=== PATIENT | male | born 1960 | race Caucasian/White ===

== ENCOUNTER 2021-04-08 19:50 | Emergency (ER) | payer MEDICAID ==
[~2021-04-08] VITALS: Ht 172.7 cm; Wt 70.0 kg
[2021-04-08 20:46] VITALS: BP 158/100
[2021-04-08] MEDS ORDERED: normal saline 1000ML IV soln IVB ONE (20:50)
[2021-04-08] MEDS ORDERED: ondansetron/PF 4mg/2ml inj IV ONE (20:50)
[2021-04-08 21:43] LABS: BASOPHILS % (AUTO) 0.7 % (0-1); EOSINOPHILS # (AUTO) 0.1 X10'3 (0-0.9); EOSINOPHILS % (AUTO) 2.9 % (0-6); HEMATOCRIT 40.3 % (42.0-52.0); HEMOGLOBIN 13.8 g/dl (14.0-17.9); LYMPHOCYTES # (AUTO) 1.1 X10'3 (1.1-4.8); LYMPHOCYTES % (AUTO) 25.4 % (21-51); MEAN CORPUSCULAR HEMOGLOBIN 31.3 PG (27.0-31.0); MEAN CORPUSCULAR HGB CONC 34.2 g/dL (33.0-36.5); MEAN CORPUSCULAR VOLUME 91.3 FL (78-98); MEAN PLATELET VOLUME 6.1 FL (7.4-10.4); MONOCYTES # (AUTO) 0.3 X10'3 (0-0.9); MONOCYTES % (AUTO) 8.2 % (2-12); NEUTROPHILS # (AUTO) 2.7 X10'3 (1.8-7.7); NEUTROPHILS % (AUTO) 62.8 % (42-75); PLATELET COUNT 244 X10'3 (140-440); RED BLOOD COUNT 4.41 X10'6 (4.70-6.10); RED CELL DISTRIBUTION WIDTH 14.2 % (11.5-14.5); WHITE BLOOD COUNT 4.2 X10'3 (4.5-11.0)
[2021-04-08 22:02] LABS: ALANINE AMINOTRANSFERASE 23 U/L (12-78); ALBUMIN 3.7 G/DL (3.4-5.0); ALBUMIN/GLOBULIN RATIO 1.1 (1.1-1.5); ALKALINE PHOSPHATASE 157 IU/L (46-116); ANION GAP 11 (8-16); ASPARTATE AMINO TRANSFERASE 21 U/L (10-37); BILIRUBIN,TOTAL 0.4 MG/DL (0.1-1.0); BLOOD UREA NITROGEN 30 MG/DL (7-18); BUN/CREATININE RATIO 16.4 (5.4-32.0); CALCIUM 8.8 MG/DL (8.5-10.1); CHLORIDE 108 MMOL/L (99-107); CREATININE 1.83 MG/DL (0.60-1.10); ETHANOL < 0.010 GM/DL (0.0-0.010); GLUCOSE 125 MG/DL (70-104); POTASSIUM 4.6 MMOL/L (3.5-5.1); SODIUM 144 MMOL/L (135-145); TOTAL CARBON DIOXIDE 25.3 MMOL/L (24-32); TOTAL PROTEIN 7.1 G/DL (6.4-8.2); eGFR 38 ML/MIN
[2021-04-09] MEDS ORDERED: ketorolac trometh inj. 60 MG/2 ML VIAL IM ONE
[2021-04-09] MEDS ORDERED: HYDROcodone/acetaminophen 5mg/325mg tablet PO ONE
== END 2021-04-09 00:23 | disposition home or self-care (01) ==
LOC: ER 19:51
DX: E86.0 Dehydration (principal); R10.84 Generalized abdominal pain; N18.9 Chronic kidney disease, unspecified; Z56.0 Unemployment, unspecified; Z59.0 Homelessness
CPT/HCPCS: 36415; 74176; 80053; 80320; 85025; 96372; 99284; J1885

== ENCOUNTER 2021-04-28 20:53 | Emergency (ER) | payer MEDICAID ==
[~2021-04-28] VITALS: Ht 177.8 cm; Wt 89.0 kg
[2021-04-28 21:18] LABS: BASOPHILS # (AUTO) 0.1 X10'3 (0-0.2); BASOPHILS % (AUTO) 0.5 % (0-1); EOSINOPHILS # (AUTO) 0.2 X10'3 (0-0.9); EOSINOPHILS % (AUTO) 1.8 % (0-6); HEMOGLOBIN 16.8 g/dl (14.0-17.9); LYMPHOCYTES # (AUTO) 3.7 X10'3 (1.1-4.8); LYMPHOCYTES % (AUTO) 34.8 % (21-51); MEAN CORPUSCULAR HEMOGLOBIN 32.2 PG (27.0-31.0); MEAN PLATELET VOLUME 6.2 FL (7.4-10.4); MONOCYTES # (AUTO) 0.8 X10'3 (0-0.9); MONOCYTES % (AUTO) 7.8 % (2-12); NEUTROPHILS # (AUTO) 5.8 X10'3 (1.8-7.7); NEUTROPHILS % (AUTO) 55.1 % (42-75); PLATELET COUNT 288 X10'3 (140-440); RED BLOOD COUNT 5.22 X10'6 (4.70-6.10); RED CELL DISTRIBUTION WIDTH 14.3 % (11.5-14.5); WHITE BLOOD COUNT 10.6 X10'3 (4.5-11.0)
[2021-04-28 21:30] LABS: ALANINE AMINOTRANSFERASE 26 U/L (12-78); ALBUMIN 4.3 G/DL (3.4-5.0); ALBUMIN/GLOBULIN RATIO 1.1 (1.1-1.5); ALKALINE PHOSPHATASE 159 IU/L (46-116); ANION GAP 14 (8-16); ASPARTATE AMINO TRANSFERASE 20 U/L (10-37); BILIRUBIN,TOTAL 0.5 MG/DL (0.1-1.0); BLOOD UREA NITROGEN 28 MG/DL (7-18); BUN/CREATININE RATIO 11.3 (5.4-32.0); CALCIUM 8.8 MG/DL (8.5-10.1); CHLORIDE 106 MMOL/L (99-107); CREATININE 2.48 MG/DL (0.60-1.10); GLUCOSE 134 MG/DL (70-104); SODIUM 144 MMOL/L (135-145); TOTAL CARBON DIOXIDE 23.8 MMOL/L (24-32); TOTAL PROTEIN 8.3 G/DL (6.4-8.2); eGFR 27 ML/MIN
[2021-04-28] MEDS ORDERED: enoxaparin 100mg/ml syringe SUBCUT ONE (21:35)
[2021-04-28] MEDS ORDERED: diltiazem 5mg/ml 5ml inj. IV ONE (21:35)
[2021-04-28] MEDS ORDERED: diltiazem-NS 100mg/100ml 100 ML IV ONE (21:35)
[2021-04-28] MEDS ORDERED: normal saline 1000ML IV soln IVB ONE (21:35)
[2021-04-28 21:38] LABS: TROPONIN I < 0.04 NG/ML (0.0-0.05)
--- NOTE | 2021-04-28 22:35 | NUR ---
PT IS ALTERED. TALKING TO HIS YET HE IS ALONE IN THE ROOM. PT CRYING AND DRIFTS IN AND OUT OF SLEEP.
--- NOTE | 2021-04-28 22:41 | NUR ---
pt respirations 8 when asleep. Pt responds to physical stimuli. Hr 170.
--- NOTE | 2021-04-28 22:45 | NUR ---
NOTIFIED MD OF RAPID HR AND DECREASED RESPIRATIONS. MD TO PLACE NEW MEDICATION ORDERS.
[2021-04-28] MEDS ORDERED: amiodarone inj. 450 MG in dextrose 5%-water 241 ML IV ONE (22:55)
[2021-04-28] MEDS ORDERED: amiodarone 50MG/ML inj IV ONE (22:55)
[2021-04-28] MEDS ORDERED: amiodarone/D5 360MG/200ML BAG 200 ML IV SCH (23:05)
--- NOTE | 2021-04-28 23:22 | NUR ---
PT PULLED OUT IV. PT HAVING DELUSIONS. PT STATING MD IS HIS COUSIN AND IS TRYING TO KILL HIM. PT PARANOID THAT POISON IS IN HIS IV LINES. WAS ABLE TO PLACE A NEW IV HOWEVER PT WILL NOT ALLOW ANY OTHER STAFF MEMBERS IN HIS ROOM.
[2021-04-28] MEDS ORDERED: haloperidol lactate 5mg/ml inj IM ONE (23:45)
[2021-04-28] MEDS ORDERED: diphenhydrAMINE 50 mg/ml inj IV ONE (23:45)
[2021-04-29 00:01] VITALS: BP 113/92
[2021-04-29] MEDS ORDERED: normal saline 1000ml 1,000 ML IV ONE (00:20)
--- NOTE | 2021-04-29 00:25 | NUR ---
NOTIFIED CHARGE OF NEED FOR SITTER DUE TO DELUSIONAL STATE, RAPID HR AND DECREASED RESPIRATIONS. EDUCATED ISMAEL (PATE) ON WHAT TO WATCH FOR AND TO PLEASE NOTIFY ME IF RESPIRATIONS ARE LESS THAN 9. AT 0038 AIDE ASKED ME TO COME TO THE ROOM AND PT WAS OUT OF BED BLEEDING AFTER PULLING IV. AT BEDSIDE, PT REFUSING TX. PT ELOPED.
--- NOTE | 2021-04-29 00:30 | NUR ---
PT CAME IN FOR DRUG OVERDOSE. PT WAS BEING TREATED FOR RAPID HR ON CARDIAC DRIP. PT SHOWING S/S OF DELUSIONAL BEHAVIOR AND PARANOIA. PT REFUSED CONT TX, PULLED OUT IV, WAS DEMONSTRATING AGRESSIVE BODY LANGUAGE. ATTEMPTED TO REDIRECT AND EDUCATED PT ON PLAN OF CARE. PT TOOK PERSONAL BELONGINGS AND ELOPED.
[2021-04-29 00:44] LABS: CREATINE KINASE 151 U/L (39-308)
== END 2021-04-29 01:24 | disposition left against medical advice (07) ==
LOC: ER 20:53
DX: T40.601A Poisoning by unspecified narcotics, accidental (unintentional), initial encounter (principal); I48.20 Chronic atrial fibrillation, unspecified; R06.03 Acute respiratory distress; F17.200 Nicotine dependence, unspecified, uncomplicated; Z72.89 Other problems related to lifestyle; F15.90 Other stimulant use, unspecified, uncomplicated; Z56.0 Unemployment, unspecified; Z59.0 Homelessness; Y92.89 Other specified places as the place of occurrence of the external cause
CPT/HCPCS: 36415; 71045; 80053; 82550; 83880; 84484; 85025; 93005; 96365; 96366; 96368; 96372; 96375; 96376; 99285; J1200; J7030; J1650; J3490

== ENCOUNTER 2021-05-15 08:57 | Emergency (ER) | payer MEDICAID ==
[~2021-05-15] VITALS: Ht 172.7 cm; Wt 81.8 kg
[2021-05-15 10:00] VITALS: BP 175/130
[2021-05-15] MEDS ORDERED: traMADol 50MG tablet PO ONE (10:30)
[2021-05-15] MEDS ORDERED: TRAM50TA2 PO (10:31)
== END 2021-05-15 10:40 | disposition home or self-care (01) ==
LOC: ER 08:58
DX: S06.0X0A Concussion without loss of consciousness, initial encounter (principal); F19.10 Other psychoactive substance abuse, uncomplicated; F17.210 Nicotine dependence, cigarettes, uncomplicated; Z56.0 Unemployment, unspecified; Z59.00 Homelessness unspecified; X96.8XXA Assault by other specified explosive, initial encounter; Y93.89 Activity, other specified; Y92.89 Other specified places as the place of occurrence of the external cause; Y99.8 Other external cause status
CPT/HCPCS: 99283

== ENCOUNTER 2021-05-17 12:41 | Emergency (ER) | payer MEDICAID ==
[~2021-05-17] VITALS: Ht 162.6 cm; Wt 81.8 kg
[~2021-05-17 12:41] MED LIST: TRAM50TA2 PO
[2021-05-17 13:05] VITALS: BP 180/103
[2021-05-17] MEDS ORDERED: mupirocin 2% ointment 22GM TP STA (22:16)
[2021-05-17] MEDS ORDERED: DOXYCYCLINE 100MG CAPSULE PO STA (22:16)
[2021-05-17] MEDS ORDERED: DOXY100C43 PO (22:20)
[2021-05-17] MEDS ORDERED: MUPI22OI30 TOP (22:20)
== END 2021-05-17 22:46 | disposition home or self-care (01) ==
LOC: ER 12:41
DX: S01.00XA Unspecified open wound of scalp, initial encounter (principal); L01.00 Impetigo, unspecified
CPT/HCPCS: 70450; 99284